=== PATIENT | female | born 1990 | race Caucasian/White ===

== ENCOUNTER 2024-08-18 09:00 | Outpatient (CLI) | payer BC, SELFPAY | END 2024-08-18 09:01 | disposition home or self-care (01) | PROVIDERS: Visit Provider Emergency Medicine | DX: Z13.1 Encounter for screening for diabetes mellitus (principal); Z13.6 Encounter for screening for cardiovascular disorders | CPT/HCPCS: 80061; 82947 ==

== ENCOUNTER 2024-09-21 08:55 | Outpatient (CLI) | payer BC, SELFPAY | END 2024-09-21 08:56 | disposition home or self-care (01) | LOC: LKVREF 08:57 | PROVIDERS: Visit Provider Obstetrics & Gynecology | DX: R30.0 Dysuria (principal); N39.0 Urinary tract infection, site not specified; R35.0 Frequency of micturition | CPT/HCPCS: 87086 ==

== ENCOUNTER 2024-09-29 14:12 | Outpatient (CLI) | payer BC, SELFPAY ==
[2024-09-29 23:24] LABS: Chlamydia DNA Amplified* NOT DETECTED (No Detected); GC DNA Amplified* NOT DETECTED (No Detected)
== END 2024-09-29 14:13 | disposition home or self-care (01) ==
LOC: FRMREF 14:12
PROVIDERS: PCP Emergency Medicine; Visit Provider Registered Nurse
DX: Z11.3 Encounter for screening for infections with a predominantly sexual mode of transmission (principal)
CPT/HCPCS: 87491; 87591

== ENCOUNTER 2024-12-27 15:28 | Outpatient (CLI) | payer BC, SELFPAY ==
[2024-12-27 21:34] LABS: Amphetamine Screen Urine POSITIVE (Negative); Barbiturate Screen Urine Negative (Negative); Benzodiazepines Screen Urine Negative (Negative); Cannabinoid Screen Urine Negative (Negative); Cocaine Screen Urine Negative (Negative); Methadone Screen Urine Negative (Negative); Methamphetamines Screen Urine Negative (Negative); Opiate Screen Urine Negative (Negative); Oxycodone Screen Urine Negative (Negative); Phencyclidine Screen Urine Negative (Negative); Tricyclic Antidepressant Urine POSITIVE (Negative)
--- OUTSIDE RECORDS SUMMARY | 2024-12-28 00:54 | XMS_ITS | Clinical Summary ---
Author Organization [facility] Address [address] [place] [address] Care Team Providers Care Software Support Technician Name Role Phone Lady Garg MD Primary Care Provider [phone] Allergies Active Allergy Reactions Criticality Noted Date Comments Sumatriptan Other - Describe In Comment Field 02/24/2022 Made headache worse Sulfa (Sulfonamide Antibiotics) Hives 04/06/2009 Medications topiramate (TOPAMAX) 50 mg tabletIndications:B ipolar 1 disorder, mixed, partial remission (HC) Take 1 Tablet (50 mg) by mouth once daily. 90 Tablet 3 3 Active LORazepam (ATIVAN) 0.5 mg tabIndications:Fear of flying Take 1 Tablet (0.5 mg) by mouth every 6 hours if needed for Anxiety (flying). 4 Tablet 3 Active zolpidem (Ambien) 5 mg tabletIndications:I nsomnia, unspecified type Take half to 1 tablet at 2 am for insomnia. Stay more then 4 hrs in the bed afterwards. 60 Tablet 4 Active zolpidem CR (AMBIEN CR) 6.25 mg Extended-Release tabletIndications:I nsomnia, unspecified type Take 1 Tablet (6.25 mg) by mouth at bedtime if needed for Sleep. 30 Tablet 4 Active desogestrel-ethinyl estradiol 0.15-30 mg-mcg (Apri) tabletIndications:E ncounter for surveillance of contraceptive pills Take 1 Tablet by mouth once daily. 84 Tablet 3 4 Active ondansetron (ZOFRAN ODT) 4 mg disintegrating tabletIndications:N ausea Place 1 Tablet (4 mg) on the tongue every 8 hours if needed for Nausea/Vomit ing. 20 Tablet 1 4 Active buPROPion (WELLBUTRIN XL) 150 mg Extended-Release tabletIndications:D epression with anxiety Take 1 Tablet (150 mg) by mouth once daily. 90 Tablet 3 4 Active OLANzapine (ZYPREXA, FILM COATED TABLET,) 10 mg tabletIndications:B ipolar 1 disorder, mixed, partial remission (HC) Take 1 Tablet (10 mg) by mouth at bedtime. 90 Tablet 1 4 Active Active Problems Problem Noted Date Diagnosed Date Sleep difficulties 02/17/2024 Migraine with aura and witho ut status migrainosus, not intractable 12/15/2022 Bipolar 1 disorder, mixed, partial remission 06/2016 Stress headaches Resolved Problems Problem Noted Date Diagnosed Date Resolved Date Vacuum extractor delivery, delivered 03/10/2014 07/10/2014 Shoulder dystocia, delivered , current hospitalization 03/10/2014 07/10/2014 Vaginal tear resulting from childbirth 03/10/2014 07/10/2014 03/09/2014 07/10/2014 Immunizations Immunization Administration Dates Next Due DTP 01/19/1997, 5,11/15/1992,11/07,1991,1991 HIB PRP-OMP (PedvaxHIB) 08/15/1992,11/07,1991,08/03 Hepatitis A (Adult) 11/23/2007,05/24/2007 Hepatitis B (Peds) 08/07/2005,1991 Hepatitis B, Unspecified 1991,1991,0 1991 Human Papilloma Virus Vaccine 12/31/2007, 008,05/24/2007 Influenza, IIV3 (Age >=3 years) 07/05/20 13,05/10/2008,05/24/2007,08/24 Influenza, IIV4 04/20/2020 Influenza,LAIV4 Live Intrana durga (Flumist) 04/06/2009 MMR 01/19/1997,08/15/1992 Meningococcal Vaccine (Menactra) 02/16/2006,02/03 Oral Polio Vaccine 01/19/1997, 5,11/15/1992,09/18,1991 Td, Preservative Free (age >= 7 Years) 4 Tdap 12/06/2013,08/07/2005,03/15/2003 Tuberculin (PPD) 02/19/2010 Varicella Vaccine 09/05/2004,06/20/2004 Family History Medical History Relation Name Comments Good Health Brother 1 Jose x 1 Alcoholism Father sober since 201 2 Anxiety disorder Father Anxiety Hypertension Father Alcoholism Maternal Grandfather Depression Mother Depression Hypertension Other 1 Grandfather unk nown side Stroke Other 2 Grandfather unk nown side Cancer Other 3 Grandfather unk nown side Allergies Other 4 Grandmother unk nown side Depression Sister 1 Arianna x 1 Other Sister 1 Arianna IST - Inappropr iate sinus Tachycardia Depression Sister 2 Natalie Relation Name Status Comments Brother 1 Jose Alive Brother 2 Shiva Alive Father Alive Maternal Grandfather Mother Alive Other 1 Other 2 Other 3 Other 4 Sister 1 Arianna Alive Sister 2 Natalie Alive Sister 3 Libia Alive Sister 4 [place] Alive Social History Tobacco Use Types Packs/Day Years Used Date Smoking Tobacco: Former Cigarettes 0.5 9 0 08/06/2004 - 08/06/2013 Smokeless Tobacco: Never Comments:-quit 9 months ago as of 02-03-2020 Alcohol Use Standard Drinks/Week Comments No 0 (1 standard drink = 0.6 oz pur e alcohol) PHQ-2 Answer Date Recorded PHQ-2 TOTAL SCORE 0 09/09/2023 Social Connections Answer Date Recorded Do you often feel lonely or isolated from those around you? 0 02/17/2024 Financial Resource Strain Answer Date R ecorded Difficulty of Paying Living Expenses 2 02/17/2024 Difficulty of Paying Living Expenses 1 02/17/2024 Food Insecurity Answer Date Recorded Do you worry your food will run out before you are able to buy more? 1 02/17/2024 Transportation Needs Answer Date Record ed Does lack of transportation keep you from medica l appointments? 1 02/17/2024 Does lack of transportation keep you from work, meetings or getting things that you need? 1 02/17/2024 Housing Stability Answer Date Recorded What is your housing situation today? 1 02/17/2024 Utilities Answer Date Recorded Do you have trouble paying f or utilities (for example, heat, electricity, water, phone)? 1 02/17/2024 Comments No Sex and Gender Information Value Date Recorded Sex Assigned at Not on file Legal Sex Female 6:15 AM TEACHER DRAMA Gender Identity Not on file Sexual Orientation Not on file Occupation Industry Job Start Date Job End Date student Not on file Not on file Not on file Obstetrics History Para Term AB IAB SAB Ectopic Multiple Livin g Live Births 1 1 1 0 0 0 0 0 0 1 1 Date Outcome GA Total Labor Labor/2nd/3rd Weight Sex Type Anes PTL Calista A1 A5 Name Clin 014 Term 3.4 kg (7 lb 8 oz) F VAGINA L VACU Livin g 3 8 BG TADEO ([facility]) Delivery Location:[facility] Last Filed Vital Signs Vital Sign Reading Time Taken Comments Blood Pressure 114/84 02/17/2024 4:13 PM CDT Pulse 80 02/17/2024 4:13 PM CDT Temperature 37.2 C (98.9 F) 09/09/2023 11:36 AM TEACHER DRAMA Respiratory Rate 16 09/09/2023 11:36 AM TEACHER DRAMA Oxygen Saturation 99% 09/09/2023 11:36 AM TEACHER DRAMA Inhaled Oxygen Concentration - - Weight 80.5 kg (177 lb 6.4 oz) 02/17/2024 4:13 P M CDT Height 166.4 cm (5' 5.5) 09/09/2023 11:36 AM CS T Body Mass Index 29.07 09/09/2023 11:36 AM TEACHER DRAMA Plan of Treatment Health Maintenance Due Date Last Done Comments COVID-19 vaccine series ( season) 2024 BMI (ht and wt on same day) for age 18+ 09/08/2024 09/09/2023, 12/15/2022, 09/10/2022, Additional history exists Depression screening for age 12+ 09/08/2024 09/09/2023, 12/15/2022, 12/15/2022, Additional history exists Influenza Vaccine (Season Ended) 2025 04/20/2020, 07/05/2013, 04/06/2009, Additional history exists Pap test for age 21-65 09/08/2026 , 09/09/2023, 02/12/2021, Additional history exists Tetanus booster 02/16/2034 02/17/2024, 09/2013, 12/06/2013, Additional history exists Hepatitis B series for 19+ Completed 08/07, 1991, 1991, Additional history exists Tdap Completed 12/06/2013, 09/2013, 08/07/2005, Additional history exists HIV for age 15-65 Completed 12/15/2022 Hepatitis C screening for age 18-79 Completed 12/15/2022 Pneumococcal series for age 6-49 Aged Out No longer eligible based on patient's age to complete this topic Procedures Procedure Name Priority Date/Time Associated Diagnosis Comments LEAD TECHNICIAN THIN PREP PAP SCREEN IMAGED Routine 09/09/2023 11:30 AM TEACHER DRAMA Screening for cervical cancer ANTI HIV 1/2 Routine 12/15/2022 9:05 AM CDT Encounter for screening for HIV ANTI HCV Routine 12/15/2022 9:05 AM CDT Need for hepatitis C screening test from Last 3 Months or Most Recently Relevant to Health Maintenance Results * LEAD TECHNICIAN THIN PREP PAP SCREEN IMAGED (09/09/2023 11:30 AM TEACHER DRAMA) Case Report Gynecologic Cytology Report Case: [id number] Authorizing Provider: Lady Garg MD Collected: 09/09/2023 1130 Ordering Location: [facility] Received: 09/09/2023 1224 First Screen: Bettina Whelan Specimen: LEAD TECHNICIAN ThinPrep Vial Screening, Cervical 09/17/2023 6:07 PM CDT [facility] INTERPRETATION /RESULT NEGATIVE FOR INTRAEPITHELIAL LESION OR MALIGNANCY (NIL) (none) 09/17/2023 6:07 PM CDT [facility] at 1807 CDT SPECIMEN ADEQUACY Satisfactory for evaluation Endocervical component present 09/17/2023 6:07 PM CDT [facility] HPV REQUEST HPV and PAP 09/17/2023 6:07 PM CDT [facility] Date of LMP 08-30-23 09/17/2023 6:07 PM CDT [facility] Last Pap Date 02/12/21 09/17/2023 6:07 PM CDT [facility] Last Pap Result NIL 09/17/2023 6:07 PM CDT [facility] Abnormal Pap or [place] Bx in last 5 years No 09/17/2023 6:07 PM CDT [facility] Menstrual Status Regular Periods 09/17/2023 6:07 PM CDT [facility] [place] Bx Done Today No 09/17/2023 6:07 PM CDT [facility] Additional Information None given 09/17/2023 6:07 PM CDT [facility] Comment: Cytology is screened at [facility] - [address], [place] [address] and [facility] - [address] [place] [address] and [facility] - [address] [place] [address] Interpreted at [facility] - [address], [place] [address] Automated Review Failed 09/17/2023 6:07 PM T [facility] Comment:Processing failed, m anual screening required. ThinPrep Imaging System, [employer] ANCILLARY TESTING LEAD TECHNICIAN HPV Ordered, Please see separate report 09/17/2023 6:07 PM CDT [facility] Note The pap test is a screening technique, not a diagnostic procedure. It is used primarily to screen for squamous cancers and precursor lesions. Published studies have shown that it is subject to both false negative and false positive results. The pap test should not be used as the sole means to diagnose or exclude pre-malignant and malignant lesions. 09/17/2023 6:07 PM CDT [facility] Other (Cervical) Non-Blood / Unknown 09/09/2023 11:30 AM TEACHER DRAMA 09/09/2023 12:24 PM TEACHER DRAMA Lady Garg MD PATHOLOGY/CYTOLOGY Final Resu lt [facility] [address] [place] [address], * ANTI HCV (12/15/2022 9:05 AM CDT) HEPATITIS C ANTIBODY Non-Reacti ve Non-React sharda 12/15/2022 10:37 AM CDT [facility] Comment:Antibodies to HCV no t detected; does not exclude the possibility of exposure to HCV. Blood BLOOD SPECIMEN / Unknown Venipuncture / Unknown 12/15/2022 9:05 AM CDT 12/15/2022 9:05 AM CDT Lady Garg MD SEND OUTS Final Result [place] [address] [place] [address], [place] [phone] * ANTI HIV 1/2 (12/15/2022 9:05 AM CDT) Pathologist [facility] HIV CATEGORY Nonreactive Nonreactive 12/15/2022 10:37 AM CDT [facility] Blood BLOOD SPECIMEN / Unknown Venipuncture / Unknown 12/15/2022 9:05 AM CDT 12/15/2022 9:05 AM CDT Lady Garg MD SEND OUTS Final Result Performing Organization Address City/[facility]/ZIP Co de Phone Number [facility] [address] [place] [address], [place] [phone] from Last 3 Months or Most Recently Relevant to Health Maintenance Insurance [facility] [employer] Advance Directives * Full Code (Latest Code Status on File) Date Activated Date Inactivated Comments 03/09/2014 6:11 PM 03/12/2014 8:36 PM * Full Code Date Activated Date Inactivated Comments 03/01/2014 2:21 PM 03/01/2014 5:13 PM Care Teams Software Support Technician Relationship Specialty Start Date End Date Lady Garg MD [address] [place], [place] [id number] PCP - General Family Practice 03/08/14
--- OUTSIDE RECORDS SUMMARY | 2024-12-28 00:54 | XMS_ITS | Clinical Summary ---
Author Organization [facility] Address [address] [place] [address] Care Team Providers Care Distribution Center Supervisor Name Role Phone Maura Read MD Primary Care Provider [phone] Allergies Active Allergy Reactions Criticality Noted Date Comments Sulfa Antibiotics 05/05/2005 Sumatriptan Other (See Comments) 02/24/2022 Made headache worse Medications NO ACTIVE MEDICATIONS . Active OLANZapine (ZYPREXA) 10 MG tablet Take 10 mg by mouth 02/03/2020 Active norgestim-eth estrad triphasic (ORTHO TRI-CYCLEN) 0.18/0.215/0.25 MG-35 MCG tablet Take 1 tablet by mouth 02/03/2020 Active doxycycline hyclate (VIBRAMYCIN) 100 MG capsule Take 1 capsule (100 mg) by mouth 2 times daily. 28 capsule 08/08/2024 Active metroNIDAZOLE (FLAGYL) 500 MG tablet Take 1 tablet (500 mg) by mouth 2 times daily. 28 tablet 08/08/2024 Active oxyCODONE (ROXICODONE) 5 MG tablet Take 1 tablet (5 mg) by mouth every 6 hours as needed for severe pain. 10 tablet 08/08/2024 Active Active Problems Problem Noted Date Diagnosed Date Allergic rhinitis due to other allergen 02/27/20 07 Immunizations Immunization Administration Dates Next Due HEPA 05/24/2007 HIB (PRP-T) 08/15/1992,1991,1991 ,1991 HPV 05/24/2007 Historical DTP/aP 01/19/1997, 5,11/15/1992,1991, 1991,1991 Influenza (IIV3) PF 05/24/2007 MMR (MMRII) 01/19/1997,08/15/1992 Meningococcal ACWY (Menactra ) 02/16/2006 OPV, trivalent, live 01/19/1997,05/11/19 95,11/15/1992,1991, 1991 TD,PF 7+ (Tenivac) 03/15/2003 Family History Medical History Relation Comments Cancer Maternal Grandfather lung, 62 Cancer Sister 1 cervical Relation Status Comments Brother Alive Father Alive Maternal Grandfather Maternal Grandmother Alive Mother Alive Paternal Grandfather Other Paternal Grandmother Other Sister 1 Alive Sister 2 Alive Social History Tobacco Use Types Packs/Day Years Used Date Smoking Tobacco: Former Cigarettes Q uit: 2019 Smokeless Tobacco: Never Alcohol Use Standard Drinks/Week Comments No 0 (1 standard drink = 0.6 oz pur e alcohol) Adolescent Education Answer Date Record ed Getting School Help Needed Not on file 04/13 Comments No Sex and Gender Information Value Date Recorded Sex Assigned at Not on file Legal Sex Female 4:07 AM ENVELOPE STUFFER Gender Identity Not on file Sexual Orientation Not on file Last Filed Vital Signs Vital Sign Reading Time Taken Comments Blood Pressure 118/88 08/07/2024 6:56 PM ENVELOPE STUFFER Pulse 77 08/07/2024 6:56 PM ENVELOPE STUFFER Temperature 36.8 C (98.2 F) 08/07/2024 12:53 PM ENVELOPE STUFFER Respiratory Rate 18 08/07/2024 6:56 PM ENVELOPE STUFFER Oxygen Saturation 99% 08/07/2024 6:56 PM ENVELOPE STUFFER Inhaled Oxygen Concentration - - Weight 73 kg (160 lb 15 oz) 08/07/2024 12:53 PM ENVELOPE STUFFER Height 167.6 cm (5' 6) 08/07/2024 12:53 PM ENVELOPE STUFFER Body Mass Index 25.98 08/07/2024 12:53 PM ENVELOPE STUFFER Plan of Treatment Health Maintenance Due Date Last Done Comments ADVANCE CARE PLANNING 1991 ANNUAL REVIEW OF HM ORDERS 1991 COVID-19 VACCINE ( season) 2024 PHQ-2 (once per calendar year) 2024 YEARLY PREVENTIVE VISIT 09/08/2024 09/09/19 24, 02/24/2022, 02/12/2021, Additional history exists INFLUENZA VACCINE (Season Ended) 2025 04/20/2020, 07/05/2013, 04/06/2009, Additional history exists PAP 09/08/2026 09/09/2023, 02/12/2021 DTAP/TDAP/TD VACCINE (9 - Td or Tdap) 02/16/2034 02/17/2024, 12/06/2013, 08/07/2005, Additional history exists ZOSTER VACCINE (1 of 2) 2041 HEPATITIS B VACCINE Completed 08/07/2005, 1991, 1991, Additional history exists MENINGITIS VACCINE Aged Out 02/16/2006 No longer eligible based on patient's age to complete this topic HPV VACCINE Completed 12/31/2007, 09/04, 05/24/2007 HEPATITIS C SCREENING Completed 12/15/2022 HIV SCREENING Completed 12/15/2022 PNEUMOCOCCAL VACCINE: PEDIATRICS (0 to 5 YEARS) AND AT-RISK PATIENTS (6 to 49 YEARS) Aged Out No longer eligible based on patient's age to complete this topic Insurance [place] Care Teams Distribution Center Supervisor Relationship Specialty Start Date End Date Maura Read MD [facility] [address] [place] [address] PCP - General Family Medicine 08/07/24
== END 2024-12-27 15:29 | disposition home or self-care (01) ==
LOC: NPINS 15:29
PROVIDERS: PCP Emergency Medicine; Visit Provider Nurse Practitioner Psychiatric/Mental Health
DX: F90.9 Attention-deficit hyperactivity disorder, unspecified type (principal)
CPT/HCPCS: 80306